=== PATIENT | male | born 1965 | race Hispanic/Latino ===

== ENCOUNTER → 2018-09-20 | Outpatient (CLI) | payer OTHER ==
[~2018-09-20] MED LIST: GADOBENATE DIMEGLUMINE 1 ML IV ONE
[2018-09-20 13:28] LABS: BLOOD UREA NITROGEN 16 mg/dL (7-26); BUN/CREATININE RATIO 15 (6-25); CREATININE, SERUM 1.09 mg/dL (0.72-1.25); EST GLOMERULAR FILTRATION RATE > 60 ML/MIN (60-)
--- NOTE | 2018-09-20 15:19 | Diagnostic Imaging Report ---
EXAMINATION: MRI of the brain with and without contrast HISTORY: Severe pressure headaches for the last 5 weeks, history of meningioma in 2015 COMPARISON: Brain MRI 05/14/2016 TECHNIQUE: Pre-contrast: Sagittal T2; axial T1-IR, T2, MPGR, DWI, FLAIR; Post-contrast: axial and coronal T1. Intravenous contrast: 20 mL of MultiHance. IMAGE QUALITY: Adequate. FINDINGS: Parenchyma: 1. Stable cortico-subcortical encephalomalacia in the right inferior frontal gyrus (preserving pars triangularis and pars opercularis) and right temporal pole. Status post complete resection of right temporal meningioma without evidence of residual or recurrent tumor. 2. No mass or hemorrhage. No acute or chronic vascular insult. Skull: Right pterional craniotomy defect. Unchanged small previously seen right anterior temporal extra axial fluid collection without associated mass effect. Major arteries: Expected flow voids present. Dural sinuses: Expected flow voids present. Ventricles: No hydrocephalus or displacement. Subarachnoid spaces: No abnormal signal intensity or enhancement. Brain volume: Normal for age. Foramen magnum: No mass, Chiari malformation, or basilar invagination. Sella: No gross mass. Paranasal/mastoid sinuses: Unremarkable. IMPRESSION: 1. Status post total resection of right temporal meningioma without evidence of residual or recurrent tumor. 2. Unchanged right frontotemporal encephalomalacia and postoperative changes as detailed above. Signed by: Dr. Lisseth Charles M.D. on 09/20/2018 3:16 PM
== END ==
LOC: MRI 12:37
PROVIDERS: ATTEND Family Medicine
DX: R51 Headache (principal); Z86.69 Personal history of other diseases of the nervous system and sense organs
CPT/HCPCS: 36415; 70553; 82565; 84520; A9577

== ENCOUNTER → 2024-11-13 | Day surgery (SDC) | payer OTHER ==
[2024-11-09 11:38] LABS: EST GLOMERULAR FILTRATION RATE 104.0 ML/MIN (>=60)
[~2024-11-13] MED LIST changes: +ATORVASTATIN CA10 MG PO; +DEXAMETHASONE SOD PHOS INJ 4 MG/ML SDV ONE; +FENTANYL CITRATE/PF 100MCG/2 ML INJ ONE; -GADOBENATE DIMEGLUMINE 1 ML IV ONE; +HYDROCHLOROTHIA25 MG PO; +HYDROCODON-ACE1 EA11 PO; +LIDOCAINE HCL 2% LOCAL INJ 5 ML SDV VIAL INJ ONE; +LOSARTAN POTASS25 MG PO; +METFORMIN HCL500 MG PO; +NEURONTIN100 MG PO; +ONDANSETRON HCL INJ 2MG/ML 2ML 2 MG/ML VIAL ONE; +OZEMPIC0.25 MG/02 SQ; +PROPOFOL IV EMULSION 10 MG/ML 20 ML VIAL ONE
[2024-11-13] MEDS: LACTATED RINGER'S 1,000 ML ONE (06:53)
[2024-11-13 08:11] VITALS: TEMP 97.3
[2024-11-13 09:10] VITALS: BP 130/77; PULSE 76; RESP 18; O2SAT 97
== END | disposition home or self-care (01) ==
LOC: OR 05:15
PROVIDERS: ATTEND Plastic Surgery
DX: G56.01 Carpal tunnel syndrome, right upper limb (principal); M65.841 Other synovitis and tenosynovitis, right hand; I10 Essential (primary) hypertension; E78.5 Hyperlipidemia, unspecified; E11.9 Type 2 diabetes mellitus without complications; Z88.2 Allergy status to sulfonamides; Z68.30 Body mass index [BMI] 30.0-30.9, adult; Z79.84 Long term (current) use of oral hypoglycemic drugs; Z79.85 Long-term (current) use of injectable non-insulin antidiabetic drugs; Z79.899 Other long term (current) drug therapy; Z01.810 Encounter for preprocedural cardiovascular examination; Z01.812 Encounter for preprocedural laboratory examination
CPT/HCPCS: 25115; 36415 ×2; 64721; 80048; 82948; 93005; J0690; J1100; J2003; J2405; J2704; J3010; J7121